=== PATIENT | male | born 1995 | race Caucasian/White ===

== ENCOUNTER 2019-03-18 14:52 | Inpatient (IN) | payer OTHER, MEDICAID ==
[~2019-03-18] VITALS: Ht 182.9 cm; Wt 82.1 kg
[2019-03-18] MEDS ORDERED: RISP2 PO (16:38)
[2019-03-18] MEDS ORDERED: DIPH25 PO (17:14)
[2019-03-18] MEDS ORDERED: INFLUENZA VIRUS VACCINE QVS 2019-20 (3YR+)/PF 60 MCG/0.5 ML SYRINGE IM ONE (18:00)
[2019-03-18 18:35] VITALS: BP 115/59
[2019-03-19 00:01] VITALS: BP 109/70
[2019-03-19 08:15] VITALS: BP 118/48
[2019-03-19 08:17] LABS: BASOPHILS % (AUTO) 0.3 % (0.0-2.0); EOSINOPHILS % (AUTO) 1.6 % (1.0-6.0); HEMATOCRIT 41.9 % (41-53); LYMPHOCYTES # (AUTO) 1.7 K/uL (1.0-4.8); LYMPHOCYTES % (AUTO) 39.2 % (22.0-44.0); MEAN CORPUSCULAR HEMOGLOBIN 31.6 pg (26.0-34.0); MEAN CORPUSCULAR HGB CONC 33.5 G/dL (31.0-37.0); MEAN CORPUSCULAR VOLUME 95 fL (80-100); MONOCYTES # (AUTO) 0.3 K/uL (0.1-1.0); MONOCYTES % (AUTO) 7.8 % (2.0-9.0); NEUTROPHILS # (AUTO) 2.2 K/uL (1.8-7.7); NEUTROPHILS % (AUTO) 51.1 % (40.0-70.0); PLATELET COUNT (AUTO) 195 K/uL (150-450); RED BLOOD CELL COUNT(AUTO) 4.43 MIL/uL (4.50-5.90); RED CELL DISTRIBUTION WIDTH 13.4 % (11.5-14.5)
[2019-03-19 08:43] LABS: HEMOGLOBIN A1C 4.5 % (4.5-6.2)
[2019-03-19 08:51] LABS: ALANINE AMINOTRANSFERASE 65 U/L (12-78); ALBUMIN 3.7 g/dL (3.4-5.0); ALKALINE PHOSPHATASE 62 U/L (46-116); ANION GAP 2 mmol/L (8-16); ASPARTATE AMINOTRANSFERASE 34 U/L (15-37); BILIRUBIN,TOTAL 0.3 mg/dL (0.1-1.0); CALCIUM, TOTAL 8.6 mg/dL (8.8-10.5); CARBON DIOXIDE 33 mmol/L (22-29); CHLORIDE 104 mmol/L (98-107); CHOL/HDL RATIO 3.5 (4.2-7.3); CHOLESTEROL 215 mg/dL (131-200); CREATININE 0.74 mg/dL (0.60-1.30); FREE T4 (FREE THYROXINE) 0.84 ng/dL (0.76-1.46); GLOMERULAR FILTR. RATE CALC > 60 mL/min (>60); GLUCOSE,RANDOM 87 mg/dL (70-110); HDL CHOLESTEROL 61 mg/dL (40-60); LDL CHOL (CALC.) 137 mg/dL (0-130); POTASSIUM 3.8 mmol/L (3.5-5.1); SODIUM SERUM 139 mmol/L (136-145); TOTAL PROTEIN, SERUM 6.9 g/dL (6.4-8.2); TRIGLYCERIDES 86 mg/dL (15-150); UREA NITROGEN, BLOOD 14 mg/dL (7-18)
[2019-03-19] MEDS: LORazepam 2 MG TABLET PO PRN (12:26)
[2019-03-19] MEDS: HALOPERIDOL 5 MG TABLET PO PRN (12:26)
[2019-03-19 16:06] VITALS: BP 129/62
[2019-03-19] MEDS ORDERED: RisperiDONE 2 MG TABLET PO SCH (17:00)
[2019-03-19] MEDS: RisperiDONE 2 MG TABLET PO SCH (20:49)
[2019-03-20 08:00] VITALS: BP 129/65
[2019-03-20] MEDS: RisperiDONE 2 MG TABLET PO SCH ×2 (08:14→21:03)
[2019-03-20 16:13] VITALS: BP 106/62
[2019-03-20] MEDS: LORazepam 2 MG TABLET PO PRN (16:31)
[2019-03-20] MEDS: HALOPERIDOL 5 MG TABLET PO PRN (16:31)
[2019-03-21 03:00] VITALS: BP 119/67
[2019-03-21 08:00] VITALS: BP 122/62
[2019-03-21] MEDS: LORazepam 2 MG TABLET PO PRN ×2 (08:31→17:03)
[2019-03-21] MEDS: RisperiDONE 2 MG TABLET PO SCH ×2 (08:31→20:35)
[2019-03-21] MEDS: HALOPERIDOL 5 MG TABLET PO PRN ×2 (08:31→17:03)
[2019-03-21] MEDS: MAGNESIUM OXIDE 400 MG TABLET PO SCH (10:03)
[2019-03-21 16:09] VITALS: BP 107/70
[2019-03-22 06:37] VITALS: BP 101/62
[2019-03-22 08:08] VITALS: BP 138/71
[2019-03-22] MEDS: MAGNESIUM OXIDE 400 MG TABLET PO SCH (08:49)
[2019-03-22] MEDS: RisperiDONE 2 MG TABLET PO SCH ×2 (08:49→20:13)
[2019-03-22 16:10] VITALS: BP 131/65
[2019-03-22] MEDS: ZOLPIDEM TARTRATE 10 MG TABLET PO PRN (20:25)
[2019-03-23 06:08] VITALS: BP 109/55
[2019-03-23 08:16] VITALS: BP 109/68
[2019-03-23] MEDS: MAGNESIUM OXIDE 400 MG TABLET PO SCH (09:00)
[2019-03-23] MEDS: RisperiDONE 2 MG TABLET PO SCH ×2 (09:00→20:13)
[2019-03-23 16:19] VITALS: BP 123/63
[2019-03-24 05:58] VITALS: BP 108/66
[2019-03-24 08:14] VITALS: BP 116/59
[2019-03-24] MEDS: RisperiDONE 2 MG TABLET PO SCH ×4 (09:00→21:00)
[2019-03-24] MEDS: MAGNESIUM OXIDE 400 MG TABLET PO SCH ×2 (09:00→09:18)
[2019-03-24 16:12] VITALS: BP 110/72
[2019-03-25 06:19] VITALS: BP 104/66
[2019-03-25 08:00] VITALS: BP 132/72
[2019-03-25] MEDS: MAGNESIUM OXIDE 400 MG TABLET PO SCH (09:00)
[2019-03-25] MEDS: RisperiDONE 2 MG TABLET PO SCH ×2 (09:00→20:39)
[2019-03-25 16:00] VITALS: BP 123/78
[2019-03-26 05:40] VITALS: BP 125/65
[2019-03-26 08:19] VITALS: BP 109/54
[2019-03-26] MEDS: MAGNESIUM OXIDE 400 MG TABLET PO SCH (08:28)
[2019-03-26] MEDS: RisperiDONE 2 MG TABLET PO SCH ×2 (08:28→20:56)
[2019-03-26 16:00] VITALS: BP 116/70
[2019-03-27 06:14] VITALS: BP 122/73
[2019-03-27 08:37] VITALS: BP 133/60
[2019-03-27] MEDS: RisperiDONE 2 MG TABLET PO SCH ×2 (09:00→20:44)
[2019-03-27] MEDS: MAGNESIUM OXIDE 400 MG TABLET PO SCH (09:00)
[2019-03-27 16:10] VITALS: BP 130/63
[2019-03-28] VITALS: BP 113/76
[2019-03-28 08:43] VITALS: BP 112/61
[2019-03-28] MEDS: MAGNESIUM OXIDE 400 MG TABLET PO SCH (09:00)
[2019-03-28] MEDS: RisperiDONE 2 MG TABLET PO SCH ×2 (09:00→20:19)
[2019-03-28] MEDS ORDERED: HALOPERIDOL LACTATE 5 MG/ML VIAL IM PRN (14:45)
[2019-03-28 16:00] VITALS: BP 127/71
[2019-03-28] MEDS: LORazepam 2 MG TABLET PO PRN (20:52)
[2019-03-28] MEDS: HALOPERIDOL 5 MG TABLET PO PRN (20:52)
[2019-03-29 06:41] VITALS: BP 124/64
[2019-03-29] MEDS: MAGNESIUM OXIDE 400 MG TABLET PO SCH (08:25)
[2019-03-29] MEDS: RisperiDONE 2 MG TABLET PO SCH ×2 (08:25→20:05)
[2019-03-29 16:14] VITALS: BP 127/65
[2019-03-29] MEDS: LORazepam 2 MG TABLET PO PRN (20:05)
[2019-03-30 06:15] VITALS: BP 109/59
[2019-03-30 08:00] VITALS: BP 115/61
[2019-03-30] MEDS: RisperiDONE 2 MG TABLET PO SCH ×2 (08:18→20:17)
[2019-03-30] MEDS: MAGNESIUM OXIDE 400 MG TABLET PO SCH (08:18)
[2019-03-30 16:09] VITALS: BP 134/81
[2019-03-30] MEDS: LORazepam 2 MG TABLET PO PRN (20:17)
[2019-03-31 04:48] VITALS: BP 126/86
[2019-03-31 08:22] VITALS: BP 118/60
[2019-03-31] MEDS: RisperiDONE 2 MG TABLET PO SCH (08:53)
[2019-03-31] MEDS: MAGNESIUM OXIDE 400 MG TABLET PO SCH (08:54)
[2019-03-31] MEDS: RisperiDONE 3 MG TABLET PO SCH ×2 (09:04→20:57)
[2019-03-31 16:09] VITALS: BP 116/69
[2019-03-31] MEDS: LORazepam 2 MG TABLET PO PRN (20:57)
[2019-04-01 08:20] VITALS: BP 108/50
[2019-04-01] MEDS: MAGNESIUM OXIDE 400 MG TABLET PO SCH (09:24)
[2019-04-01] MEDS: RisperiDONE 3 MG TABLET PO SCH ×2 (09:24→20:09)
[2019-04-01 16:10] VITALS: BP 114/69
[2019-04-01] MEDS: LORazepam 2 MG TABLET PO PRN (20:09)
[2019-04-02 06:25] VITALS: BP 102/54
[2019-04-02] MEDS: MAGNESIUM OXIDE 400 MG TABLET PO SCH (08:19)
[2019-04-02] MEDS: RisperiDONE 3 MG TABLET PO SCH ×2 (08:19→20:09)
[2019-04-02 08:42] VITALS: BP 113/62
[2019-04-02 16:18] VITALS: BP 131/72
[2019-04-02] MEDS: ZOLPIDEM TARTRATE 10 MG TABLET PO PRN (20:45)
[2019-04-03 07:01] VITALS: BP 103/67
[2019-04-03 08:26] VITALS: BP 110/60
[2019-04-03] MEDS: MAGNESIUM OXIDE 400 MG TABLET PO SCH (09:56)
[2019-04-03] MEDS: RisperiDONE 3 MG TABLET PO SCH ×2 (09:56→20:30)
[2019-04-03] MEDS ORDERED: PALIPERIDONE PALMITATE 234 MG/1.5 ML SYRINGE IM ONE (11:00)
[2019-04-03 16:11] VITALS: BP 118/64
[2019-04-03] MEDS: LORazepam 2 MG TABLET PO PRN (20:30)
[2019-04-04 06:31] VITALS: BP 126/82
[2019-04-04 08:00] VITALS: BP 133/67
[2019-04-04] MEDS: MAGNESIUM OXIDE 400 MG TABLET PO SCH (08:41)
[2019-04-04] MEDS: RisperiDONE 3 MG TABLET PO SCH ×2 (08:41→20:20)
[2019-04-04] MEDS: LORazepam 2 MG TABLET PO PRN ×2 (08:41→20:20)
[2019-04-04 16:29] VITALS: BP 135/79
[2019-04-05 00:51] VITALS: BP 107/57
[2019-04-05 08:25] VITALS: BP 110/63
[2019-04-05] MEDS: RisperiDONE 3 MG TABLET PO SCH ×2 (08:55→20:52)
[2019-04-05] MEDS: MAGNESIUM OXIDE 400 MG TABLET PO SCH (08:55)
[2019-04-05 16:34] VITALS: BP 109/64
[2019-04-05] MEDS: ZOLPIDEM TARTRATE 10 MG TABLET PO PRN (21:15)
[2019-04-06 06:38] VITALS: BP 122/67
[2019-04-06 08:30] VITALS: BP 135/80
[2019-04-06] MEDS: LORazepam 2 MG TABLET PO PRN (08:49)
[2019-04-06] MEDS: MAGNESIUM OXIDE 400 MG TABLET PO SCH (08:49)
[2019-04-06] MEDS: RisperiDONE 3 MG TABLET PO SCH ×2 (08:49→20:38)
[2019-04-06 19:06] VITALS: BP 127/78
[2019-04-06] MEDS: ZOLPIDEM TARTRATE 10 MG TABLET PO PRN (20:38)
[2019-04-07 06:49] VITALS: BP 105/65
[2019-04-07 08:40] VITALS: BP 113/61
[2019-04-07] MEDS ORDERED: PALIPERIDONE PALMITATE 156 MG/ML SYRINGE IM ONE (09:00)
[2019-04-07] MEDS: RisperiDONE 3 MG TABLET PO SCH ×2 (09:30→21:08)
[2019-04-07] MEDS: MAGNESIUM OXIDE 400 MG TABLET PO SCH (09:30)
[2019-04-07] MEDS: LORazepam 2 MG TABLET PO PRN (11:12)
[2019-04-07 16:21] VITALS: BP 114/65
[2019-04-07] MEDS: ZOLPIDEM TARTRATE 10 MG TABLET PO PRN (21:08)
[2019-04-08 06:18] VITALS: BP 109/62
[2019-04-08 08:28] VITALS: BP 116/80
[2019-04-08] MEDS: MAGNESIUM OXIDE 400 MG TABLET PO SCH (08:31)
[2019-04-08] MEDS: LORazepam 2 MG TABLET PO PRN (08:31)
[2019-04-08] MEDS: RisperiDONE 3 MG TABLET PO SCH ×2 (08:31→20:59)
[2019-04-08 16:25] VITALS: BP 116/67
[2019-04-08] MEDS: ZOLPIDEM TARTRATE 10 MG TABLET PO PRN (20:59)
[2019-04-09 06:48] VITALS: BP 104/62
[2019-04-09 08:31] VITALS: BP 136/67
[2019-04-09] MEDS: RisperiDONE 3 MG TABLET PO SCH ×2 (08:45→20:40)
[2019-04-09] MEDS: MAGNESIUM OXIDE 400 MG TABLET PO SCH (08:45)
[2019-04-09 16:10] VITALS: BP 119/70
[2019-04-09] MEDS: LORazepam 2 MG TABLET PO PRN (17:07)
[2019-04-09] MEDS: ZOLPIDEM TARTRATE 10 MG TABLET PO PRN (20:40)
[2019-04-10 06:03] VITALS: BP 119/64
[2019-04-10] MEDS: MAGNESIUM OXIDE 400 MG TABLET PO SCH (08:10)
[2019-04-10] MEDS: RisperiDONE 3 MG TABLET PO SCH ×2 (08:10→20:39)
[2019-04-10 08:24] VITALS: BP 138/81
[2019-04-10] MEDS: LORazepam 2 MG TABLET PO PRN (09:12)
[2019-04-10 16:18] VITALS: BP 135/94
[2019-04-10] MEDS: ZOLPIDEM TARTRATE 10 MG TABLET PO PRN (20:40)
[2019-04-11 06:40] VITALS: BP 122/75
[2019-04-11] MEDS: RisperiDONE 3 MG TABLET PO SCH ×2 (08:23→20:32)
[2019-04-11] MEDS: MAGNESIUM OXIDE 400 MG TABLET PO SCH (08:23)
[2019-04-11] MEDS: LORazepam 2 MG TABLET PO PRN (08:23)
[2019-04-11 08:42] VITALS: BP 127/74
[2019-04-11 16:16] VITALS: BP 130/78
[2019-04-11] MEDS: ZOLPIDEM TARTRATE 10 MG TABLET PO PRN (20:32)
[2019-04-12 05:41] VITALS: BP 122/85
[2019-04-12 08:22] VITALS: BP 127/74
[2019-04-12] MEDS: LORazepam 2 MG TABLET PO PRN ×2 (08:40→15:59)
[2019-04-12] MEDS: RisperiDONE 3 MG TABLET PO SCH ×2 (08:40→20:14)
[2019-04-12] MEDS: MAGNESIUM OXIDE 400 MG TABLET PO SCH (08:41)
[2019-04-12] MEDS ORDERED: NICOTINE 21 MG/24 HOUR PATCH TD SCH (10:45)
[2019-04-12] MEDS: NICOTINE 21 MG/24 HOUR PATCH TD PRN (11:25)
[2019-04-12 16:05] VITALS: BP 123/90
[2019-04-12] MEDS: ZOLPIDEM TARTRATE 10 MG TABLET PO PRN (20:14)
[2019-04-13 05:17] VITALS: BP 122/86
[2019-04-13] MEDS: MAGNESIUM OXIDE 400 MG TABLET PO SCH (08:11)
[2019-04-13] MEDS: RisperiDONE 3 MG TABLET PO SCH ×2 (08:14→20:35)
[2019-04-13] MEDS: LORazepam 2 MG TABLET PO PRN (08:14)
[2019-04-13 08:32] VITALS: BP 108/66
[2019-04-13] MEDS: NICOTINE 21 MG/24 HOUR PATCH TD PRN (09:09)
[2019-04-13 16:44] VITALS: BP 114/68
[2019-04-13] MEDS: ZOLPIDEM TARTRATE 10 MG TABLET PO PRN (20:35)
[2019-04-14 06:02] VITALS: BP 126/62
[2019-04-14 09:01] VITALS: BP 122/79
[2019-04-14] MEDS: MAGNESIUM OXIDE 400 MG TABLET PO SCH (10:05)
[2019-04-14] MEDS: RisperiDONE 3 MG TABLET PO SCH ×2 (10:06→20:14)
[2019-04-14] MEDS: NICOTINE 21 MG/24 HOUR PATCH TD PRN (10:11)
[2019-04-14] MEDS: LORazepam 2 MG TABLET PO PRN (13:11)
[2019-04-14 16:07] VITALS: BP 131/73
[2019-04-15 06:34] VITALS: BP 129/75
[2019-04-15 08:21] VITALS: BP 126/73
[2019-04-15] MEDS: RisperiDONE 3 MG TABLET PO SCH ×2 (09:05→20:38)
[2019-04-15] MEDS: MAGNESIUM OXIDE 400 MG TABLET PO SCH (09:09)
[2019-04-15] MEDS: LORazepam 2 MG TABLET PO PRN (14:06)
[2019-04-15 16:21] VITALS: BP 133/79
[2019-04-15 17:42] VITALS: BP 133/79
[2019-04-16 05:42] VITALS: BP 112/93
[2019-04-16] MEDS: MAGNESIUM OXIDE 400 MG TABLET PO SCH (08:01)
[2019-04-16] MEDS: RisperiDONE 3 MG TABLET PO SCH ×2 (08:01→20:39)
[2019-04-16] MEDS: NICOTINE 21 MG/24 HOUR PATCH TD PRN (08:02)
[2019-04-16 08:05] VITALS: BP 108/67
[2019-04-16] MEDS: LORazepam 2 MG TABLET PO PRN (12:48)
[2019-04-16 16:17] VITALS: BP 108/62
[2019-04-16] MEDS: ZOLPIDEM TARTRATE 10 MG TABLET PO PRN (20:39)
[2019-04-17 06:13] VITALS: BP 111/63
[2019-04-17 08:30] VITALS: BP 135/71
[2019-04-17] MEDS: RisperiDONE 3 MG TABLET PO SCH ×2 (08:35→21:06)
[2019-04-17] MEDS: MAGNESIUM OXIDE 400 MG TABLET PO SCH (08:36)
[2019-04-17] MEDS: NICOTINE 21 MG/24 HOUR PATCH TD PRN (08:47)
[2019-04-17] MEDS: LORazepam 2 MG TABLET PO PRN (11:30)
[2019-04-17 17:03] VITALS: BP 121/60
[2019-04-17] MEDS: ZOLPIDEM TARTRATE 10 MG TABLET PO PRN (21:06)
[2019-04-18 06:23] VITALS: BP 109/66
[2019-04-18 08:00] VITALS: BP 112/65
[2019-04-18] MEDS: RisperiDONE 3 MG TABLET PO SCH ×2 (09:29→20:43)
[2019-04-18] MEDS: MAGNESIUM OXIDE 400 MG TABLET PO SCH (09:29)
[2019-04-18] MEDS: NICOTINE 21 MG/24 HOUR PATCH TD PRN (09:37)
[2019-04-18] MEDS: LORazepam 2 MG TABLET PO PRN (13:03)
[2019-04-18 16:00] VITALS: BP 117/65
[2019-04-18] MEDS: ZOLPIDEM TARTRATE 10 MG TABLET PO PRN (20:43)
[2019-04-19 06:31] VITALS: BP 124/84
[2019-04-19 08:13] VITALS: BP 123/68
[2019-04-19] MEDS: RisperiDONE 3 MG TABLET PO SCH ×2 (08:56→20:29)
[2019-04-19] MEDS: MAGNESIUM OXIDE 400 MG TABLET PO SCH (08:56)
[2019-04-19] MEDS: NICOTINE 21 MG/24 HOUR PATCH TD PRN (08:59)
[2019-04-19] MEDS: LORazepam 2 MG TABLET PO PRN (13:19)
[2019-04-19 16:20] VITALS: BP 128/75
[2019-04-20 05:42] VITALS: BP 111/63
[2019-04-20 08:22] VITALS: BP 111/74
[2019-04-20] MEDS: RisperiDONE 3 MG TABLET PO SCH ×2 (08:38→20:51)
[2019-04-20] MEDS: MAGNESIUM OXIDE 400 MG TABLET PO SCH (08:38)
[2019-04-20] MEDS: NICOTINE 21 MG/24 HOUR PATCH TD PRN (08:51)
[2019-04-20] MEDS: LORazepam 2 MG TABLET PO PRN (13:18)
[2019-04-20 16:31] VITALS: BP 120/69
[2019-04-20] MEDS: ZOLPIDEM TARTRATE 10 MG TABLET PO PRN (20:51)
[2019-04-21 05:49] VITALS: BP 115/66
[2019-04-21 08:18] VITALS: BP 123/78
[2019-04-21] MEDS ORDERED: PALI234D IM ×2 (08:53)
[2019-05-05] MEDS ORDERED: PALIPERIDONE PALMITATE 234 MG/1.5 ML SYRINGE IM SCH (09:00)
== END 2019-04-21 11:25 | disposition home or self-care (01) | DRG 885 ==
LOC: B3A 17:20
DX: F20.0 Paranoid schizophrenia (principal); E78.5 Hyperlipidemia, unspecified; F12.90 Cannabis use, unspecified, uncomplicated; Y90.0 Blood alcohol level of less than 20 mg/100 ml; Z91.19 Patient's noncompliance with other medical treatment and regimen; Z56.0 Unemployment, unspecified; Z28.21 Immunization not carried out because of patient refusal; Z79.899 Other long term (current) drug therapy
CPT/HCPCS: 80074; 83036; 83735; 84439; 84443; 87081; J1630